=== PATIENT | male | born 1970 | race Caucasian/White ===

== ENCOUNTER → 2018-06-02 14:05 | Outpatient (CLI) | payer BC | END | disposition home or self-care (01) | LOC: D.HCCARDIO 14:05 | DX: R07.9 Chest pain, unspecified (principal) ==

== ENCOUNTER 2020-01-22 19:46 | Inpatient (IN) | payer BC ==
[~2020-01-22] VITALS: Ht 177.8 cm; Wt 113.4 kg
[2020-01-22 22:04] LABS: BASOPHILS 0.1 % (0-2); EOSINOPHILS 0.2 % (0-7); HEMATOCRIT 45.5 % (42.0-54.0); HEMOGLOBIN 15.5 g/dL (13.5-17.5); IMMATURE GRANULOCYTES 0.3 % (0-5); LYMPHOCYTES 5.9 % (15-50); MCH 30.5 pg (26.0-34.0); MCHC 34.1 g/dL (31.0-37.0); MCV 89.6 fL (80.0-100.0); MEAN PLATELET VOLUME 10.2 fL (7.4-10.4); MONOCYTES 12.2 % (2-11); NEUTROPHILS 81.3 % (40-80); PLATELET COUNT 229 10x3/uL (130-400); RBC 5.08 10x6/uL (4.20-6.10); RDW 12.8 % (11.5-14.5)
[2020-01-22 22:15] LABS: APTT 32.1 SECONDS (22.8-39.4); CALC OSMOLALITY 274 mosm/kg (275-300); CALCIUM 8.8 mg/dL (8.5-10.1); CARBON DIOXIDE 24.5 mmol/L (21.0-32.0); CHLORIDE - SERUM 103 mmol/L (98-107); CREATININE - SERUM 1.5 mg/dL (0.6-1.3); GLUCOSE 124 mg/dL (74-106); POTASSIUM - SERUM 3.7 mmol/L (3.5-5.1); PROTIME 13.1 SECONDS (11.6-15.0); SODIUM 137 mmol/L (136-145); UREA NITROGEN 13 mg/dL (7-18); eGFR NON AFRICAN AMERICAN 53 mL/min (90-120)
[2020-01-22 22:37] LABS: ALKALINE PHOSPHATASE 378 U/L (30-120); ALT (SGPT) 365 U/L (10-68); BILIRUBIN - TOTAL 1.78 mg/dL (0.2-1.3); CKMB 0.3 U/L (0.0-3.6); CREATINE KINASE 44 UL (21-232); PRO BNP 139 pg/mL (0-125); PROTEIN - SERUM 7.3 g/dL (6.4-8.2)
[2020-01-22 22:38] LABS: TROPONIN-I < 0.017 ng/mL (0.000-0.060)
[2020-01-22 23:46] VITALS: BP 131/82
[2020-01-23 00:08] VITALS: BP 128/79
[2020-01-23 02:28] VITALS: BP 128/87
[2020-01-23] MEDS ORDERED: COZAAR100 MG PO (03:24)
[2020-01-23] MEDS ORDERED: PRAVACHOL20 MG PO (03:25)
[2020-01-23] MEDS ORDERED: TESSALON PERLE100 MG PO (03:26)
[2020-01-23] MEDS ORDERED: MEDROL4 MG PO (03:29)
[2020-01-23] MEDS ORDERED: PULMICORT0.5 MG/21 INH (03:30)
[2020-01-23] MEDS ORDERED: TAMIFLU75 MG PO (03:32)
[2020-01-23] MEDS ORDERED: ALBUTEROL SULF8.5 GM INH (03:33)
--- NOTE | 2020-01-23 03:44 | NUR ---
PT A/O X4 UPON ARRIVAL. TELE PLACED-87SR PER [employer] AND [employer]. PT PLACED ON DROPLLET ISO. SANDWHICH GIVEN TO PT. HISTORY AND MED REC COMPLETED. PT ON ROOM AIR AT 97%. VITALS STABLE AT THIS TIME. NO S/S OF DISTRESS. PT DENIES ANY PAIN OR FURTHER NEEDS. BED LOW CALL LIGHT WITHIN REACH. WILL CONTINUE TO MONITOR.
[2020-01-23 04:00] VITALS: BP 143/82
[2020-01-23 06:08] VITALS: BMI 35.9
--- NOTE | 2020-01-23 08:28 | NUR ---
PT SITTING UP IN BED. C/O CHILLS AND BODY ACHE. TEMP 99.3 ORAL. REMOVED BLANKET AND LETR PT KEEP SHEET FOR NOW. RR EVEN AND LABORED UPON EXERTION WITH RA. DENIES NEEDS OR PAIN AT THIS TIME. CALL LIGHT WITHIN REACH. BED IN LOWEST POSITION. WILL CONTINUE TO MONITOR.
[2020-01-23 08:31] VITALS: BP 157/85
[2020-01-23 10:58] LABS: BASOPHILS 0 % (0-2); EOSINOPHILS 0 % (0-7); HEMATOCRIT 41.2 % (42.0-54.0); HEMOGLOBIN 14.1 g/dL (13.5-17.5); IMMATURE GRANULOCYTES 0.3 % (0-5); LYMPHOCYTES 5.2 % (15-50); MCH 30.5 pg (26.0-34.0); MCHC 34.2 g/dL (31.0-37.0); MCV 89.2 fL (80.0-100.0); MEAN PLATELET VOLUME 9.7 fL (7.4-10.4); MONOCYTES 4.5 % (2-11); PLATELET COUNT 197 10x3/uL (130-400); RBC 4.62 10x6/uL (4.20-6.10); WBC 10.3 10x3/uL (4.8-10.8)
[2020-01-23 11:25] LABS: ALBUMIN 2.6 g/dL (3.4-5.0); ALKALINE PHOSPHATASE 306 U/L (30-120); ALT (SGPT) 262 U/L (10-68); BILIRUBIN - TOTAL 1.22 mg/dL (0.2-1.3); CALC OSMOLALITY 275 mosm/kg (275-300); CALCIUM 8.6 mg/dL (8.5-10.1); CARBON DIOXIDE 22.6 mmol/L (21.0-32.0); CHLORIDE - SERUM 103 mmol/L (98-107); CREATININE - SERUM 1.3 mg/dL (0.6-1.3); GLUCOSE 145 mg/dL (74-106); MAGNESIUM - SERUM 1.4 mg/dL (1.8-2.4); POTASSIUM - SERUM 4.1 mmol/L (3.5-5.1); PROTEIN - SERUM 6.5 g/dL (6.4-8.2); SODIUM 136 mmol/L (136-145); TROPONIN-I < 0.017 ng/mL (0.000-0.060); UREA NITROGEN 14 mg/dL (7-18); eGFR NON AFRICAN AMERICAN 62 mL/min (90-120)
[2020-01-23 11:27] LABS: PHOSPHOROUS 1.4 mg/dL (2.5-4.9)
[2020-01-23 13:13] VITALS: BP 142/90
--- NOTE | 2020-01-23 17:02 | NUR ---
I have reviewed this patient and I concur with the Shift Assessment completed by the Licensed Practical Nurse today this shift.
--- NOTE | 2020-01-23 19:00 | NUR ---
REPORT RECEIVED, WILL CONTINUE POC. PATIENT IS AAOX4, SITTING UP IN BED. NO S/S OF DISTRESS OBSERVED. SHORT OF BREATH AND DYSPNEA ON EXERTION. PATIENT DENIES NEEDS AT THIS TIME. CL IN REACH, BED LOCKED AND LOWERED. ISOLATION PRECAUTIONS FOLLOWED. WILL CTM.
[2020-01-23 20:00] VITALS: BP 127/77
[2020-01-24 04:00] VITALS: BP 138/94
[2020-01-24 06:31] LABS: BASOPHILS 0 % (0-2); EOSINOPHILS 0.2 % (0-7); HEMATOCRIT 39.3 % (42.0-54.0); HEMOGLOBIN 13.5 g/dL (13.5-17.5); IMMATURE GRANULOCYTES 0.5 % (0-5); LYMPHOCYTES 11.1 % (15-50); MCH 30.7 pg (26.0-34.0); MCHC 34.4 g/dL (31.0-37.0); MCV 89.3 fL (80.0-100.0); MEAN PLATELET VOLUME 10.1 fL (7.4-10.4); MONOCYTES 12.4 % (2-11); NEUTROPHILS 75.8 % (40-80); PLATELET COUNT 236 10x3/uL (130-400); WBC 11.2 10x3/uL (4.8-10.8)
[2020-01-24 07:17] LABS: ALBUMIN 2.5 g/dL (3.4-5.0); BILIRUBIN - DIRECT 0.37 mg/dL (0.00-0.30); BILIRUBIN - INDIRECT 0.27 mg/dL (0.00-1.00); BILIRUBIN - TOTAL 0.64 mg/dL (0.2-1.3); CALCIUM 8.4 mg/dL (8.5-10.1); CARBON DIOXIDE 20.8 mmol/L (21.0-32.0); CREATININE - SERUM 1.3 mg/dL (0.6-1.3); MAGNESIUM - SERUM 1.5 mg/dL (1.8-2.4); POTASSIUM - SERUM 3.8 mmol/L (3.5-5.1); PROTEIN - SERUM 6.5 g/dL (6.4-8.2)
[2020-01-24 07:19] LABS: PHOSPHOROUS 4.1 mg/dL (2.5-4.9)
[2020-01-24 08:42] VITALS: BP 148/94
[2020-01-24 17:11] VITALS: BP 176/62
--- NOTE | 2020-01-24 19:00 | NUR ---
REPORT RECEIVED, WILL CONTINUE POC. PATIENT IS AAOX4, SITTING UP IN BED. PATIENT HAS OWN BLOOD PRESSURE MEDICATION AT BEDSIDE. INFORMED PATIENT THAT HE DOESN'T NEED TO TAKE ADDITIONAL MEDICATIONS DUE TO UNKNOWN REACTIONS WITH MEDICATIONS HE IS RECEIVING WHILE IN THE HOSPITAL. PATIENT STATES UNDERSTANDING. PATIENT DENIES FURTHER NEEDS AT THIS TIME. NO S/S OF DISTRESS OBSERVED, RR EVEN AND UNLABORED ON ROOM AIR WITH SOME DYPSNEA ON EXERTION. AT BEDSIDE. DROPLET PRECAUTIONS MAINTAINED. WILL CTM.
[2020-01-24 20:00] VITALS: BP 158/108
[2020-01-25] VITALS: BP 133/90
[2020-01-25 04:00] VITALS: BP 155/103
[2020-01-25 07:08] LABS: BASOPHILS 0.2 % (0-2); EOSINOPHILS 3.1 % (0-7); HEMATOCRIT 40.9 % (42.0-54.0); HEMOGLOBIN 13.9 g/dL (13.5-17.5); IMMATURE GRANULOCYTES 1.1 % (0-5); MCH 30.3 pg (26.0-34.0); MCV 89.1 fL (80.0-100.0); MEAN PLATELET VOLUME 9.6 fL (7.4-10.4); NEUTROPHILS 59.6 % (40-80); PLATELET COUNT 193 10x3/uL (130-400); RBC 4.59 10x6/uL (4.20-6.10); RDW 13.1 % (11.5-14.5)
[2020-01-25 07:12] LABS: WBC 6.5 10x3/uL (4.8-10.8)
[2020-01-25 07:36] LABS: CALC OSMOLALITY 278 mosm/kg (275-300); CALCIUM 8.5 mg/dL (8.5-10.1); CARBON DIOXIDE 22.9 mmol/L (21.0-32.0); CHLORIDE - SERUM 106 mmol/L (98-107); CREATININE - SERUM 1.1 mg/dL (0.6-1.3); GLUCOSE 104 mg/dL (74-106); MAGNESIUM - SERUM 1.6 mg/dL (1.8-2.4); PHOSPHOROUS 3.7 mg/dL (2.5-4.9); POTASSIUM - SERUM 3.8 mmol/L (3.5-5.1); SODIUM 139 mmol/L (136-145); UREA NITROGEN 15 mg/dL (7-18); eGFR NON AFRICAN AMERICAN 75 mL/min (90-120)
[2020-01-25 08:57] VITALS: BP 153/97
[2020-01-25 12:19] VITALS: BP 141/89
--- NOTE | 2020-01-25 13:26 | NUR ---
I have reviewed this patient and I concur with the Shift Assessment completed by the Licensed Practical Nurse today this shift.
[2020-01-25 18:06] LABS: BILIRUBIN NEGATIVE (NEGATIVE); GLUCOSE NEGATIVE (NEGATIVE); KETONE NEGATIVE (NEGATIVE); NITRITE NEGATIVE (NEGATIVE); UROBILINOGEN NORMAL (NORMAL)
--- NOTE | 2020-01-25 19:00 | NUR ---
REPORT RECEIVED, WILL CONTINUE POC. PATIENT IS AAOX4, SITTING IN HIGH FOWLERS POSITION. NO S/S OF DISTRESS OBSERVED, RR EVEN AND UNLABORED ON ROOM AIR. PATIENT DENIES NEEDS AT THIS TIME. CL IN REACH, BED LOCKED AND LOWERED. DROPLET PRECAUTIONS MAINTAINED. WILL CTM.
[2020-01-26] VITALS: BP 143/100
[2020-01-26 06:51] LABS: BASOPHILS 0.3 % (0-2); EOSINOPHILS 4.2 % (0-7); HEMATOCRIT 41.9 % (42.0-54.0); IMMATURE GRANULOCYTES 1.5 % (0-5); MCHC 33.4 g/dL (31.0-37.0); MCV 89.7 fL (80.0-100.0); MEAN PLATELET VOLUME 9.5 fL (7.4-10.4); MONOCYTES 13.8 % (2-11); NEUTROPHILS 60.2 % (40-80); PLATELET COUNT 222 10x3/uL (130-400); RBC 4.67 10x6/uL (4.20-6.10); RDW 13.1 % (11.5-14.5); WBC 6.2 10x3/uL (4.8-10.8)
[2020-01-26 07:07] LABS: CALC OSMOLALITY 275 mosm/kg (275-300); CALCIUM 8.5 mg/dL (8.5-10.1); CARBON DIOXIDE 23.3 mmol/L (21.0-32.0); CHLORIDE - SERUM 105 mmol/L (98-107); GLUCOSE 105 mg/dL (74-106); MAGNESIUM - SERUM 1.9 mg/dL (1.8-2.4); PHOSPHOROUS 3.8 mg/dL (2.5-4.9); POTASSIUM - SERUM 3.8 mmol/L (3.5-5.1); SODIUM 138 mmol/L (136-145); UREA NITROGEN 12 mg/dL (7-18); eGFR NON AFRICAN AMERICAN 84 mL/min (90-120)
[2020-01-26 07:12] LABS: ALBUMIN 2.7 g/dL (3.4-5.0); BILIRUBIN - DIRECT 0.41 mg/dL (0.00-0.30); BILIRUBIN - INDIRECT 0.28 mg/dL (0.00-1.00); BILIRUBIN - TOTAL 0.69 mg/dL (0.2-1.3); PROTEIN - SERUM 5.9 g/dL (6.4-8.2)
[2020-01-26 08:00] VITALS: BP 144/97
[2020-01-26 11:00] VITALS: BP 141/96
[2020-01-26 11:11] LABS: HEPATITIS C ANTIBODY 0.1 S/CO RAT (0.0-0.9)
[2020-01-26 11:35] VITALS: Ht 177.8 cm; Wt 113.4 kg
[2020-01-26 15:00] VITALS: BP 138/86
--- NOTE | 2020-01-26 19:30 | NUR ---
PT IN BED, AAO X 3, RESP EVEN AND UNLABORED, NO DISTRESS NOTED, CL IN REACH, SR UP X 2, CL IN REACH.
[2020-01-26 20:00] VITALS: BP 149/94
--- NOTE | 2020-01-27 03:55 | NUR ---
I have reviewed this patient and I concur with the Shift Assessment completed by the Licensed Practical Nurse today this shift.
[2020-01-27 04:00] VITALS: BP 142/94
[2020-01-27 05:53] LABS: BASOPHILS 0.3 % (0-2); EOSINOPHILS 5.3 % (0-7); HEMATOCRIT 41.5 % (42.0-54.0); HEMOGLOBIN 13.8 g/dL (13.5-17.5); IMMATURE GRANULOCYTES 1.3 % (0-5); LYMPHOCYTES 20.1 % (15-50); MCH 30.1 pg (26.0-34.0); MCHC 33.3 g/dL (31.0-37.0); MCV 90.4 fL (80.0-100.0); MEAN PLATELET VOLUME 9.8 fL (7.4-10.4); MONOCYTES 8.1 % (2-11); NEUTROPHILS 64.9 % (40-80); PLATELET COUNT 265 10x3/uL (130-400); RBC 4.59 10x6/uL (4.20-6.10); RDW 13.1 % (11.5-14.5)
[2020-01-27 06:02] LABS: CALC OSMOLALITY 273 mosm/kg (275-300); CALCIUM 8.5 mg/dL (8.5-10.1); CHLORIDE - SERUM 105 mmol/L (98-107); GLUCOSE 96 mg/dL (74-106); MAGNESIUM - SERUM 1.9 mg/dL (1.8-2.4); POTASSIUM - SERUM 3.7 mmol/L (3.5-5.1); SODIUM 137 mmol/L (136-145); UREA NITROGEN 13 mg/dL (7-18); eGFR NON AFRICAN AMERICAN 84 mL/min (90-120)
[2020-01-27 06:04] LABS: WBC 7.8 10x3/uL (4.8-10.8)
[2020-01-27 08:00] VITALS: BP 139/92
[2020-01-27 09:27] LABS: ALBUMIN 2.8 g/dL (3.4-5.0); BILIRUBIN - DIRECT 0.28 mg/dL (0.00-0.30); BILIRUBIN - INDIRECT 0.26 mg/dL (0.00-1.00); BILIRUBIN - TOTAL 0.54 mg/dL (0.2-1.3); PROTEIN - SERUM 5.8 g/dL (6.4-8.2)
[2020-01-27 12:00] VITALS: BP 131/102
[2020-01-27] MEDS ORDERED: MUCINEX600 MG PO (15:26)
[2020-01-27] MEDS ORDERED: OMNICEF300 MG PO (15:26)
[2020-01-27] MEDS ORDERED: DOXYCYCLINE HY100 M2 PO (15:26)
--- NOTE | 2020-01-27 15:36 | NUR ---
SALINE LOCK TAKEN OUT AND LAST DOSE OF TAMIFLU GIVEN ORDERS OF ANDRE HIGGINS APRN
--- NOTE | 2020-01-27 16:15 | NUR ---
DISCHARGE INSTRUCTIONS WITH PATIENT AND , TRANSFERED TO WAITING VEHICLE VIA WHEELCHAIR TO HOME
== END 2020-01-27 16:17 | disposition home or self-care (01) | DRG 194 ==
LOC: D.ER 19:46 → D.M2 22:41 → D.EDHOLD 22:41 → D.M2 01-23 00:57
PROVIDERS: Family Medicine; ADMIT Family Medicine Adult Medicine; ATTEND Family Medicine Adult Medicine
DX: J11.00 Influenza due to unidentified influenza virus with unspecified type of pneumonia (principal); N17.9 Acute kidney failure, unspecified; I10 Essential (primary) hypertension; E78.5 Hyperlipidemia, unspecified; E66.9 Obesity, unspecified; Z68.35 Body mass index [BMI] 35.0-35.9, adult